=== PATIENT | male | born 1960 | race Caucasian/White ===

== ENCOUNTER 2020-12-05 06:24 | Outpatient (CLI) | payer OTHER ==
[~2020-12-05] VITALS: Ht 195.6 cm; Wt 124.9 kg
[2020-12-05] MEDS ORDERED: [UNRECOGNIZED DRUG - CODE] PO (14:14)
[2020-12-05] MEDS ORDERED: IBU PO (14:14)
[2020-12-05] MEDS ORDERED: ASCO500C17 PO (14:14)
[2020-12-05] MEDS ORDERED: FLUT9.9S NS (14:14)
[2020-12-05] MEDS ORDERED: FISH400C PO (14:14)
[2020-12-05] MEDS ORDERED: HYDR12.56 PO (14:14)
[2020-12-05] MEDS ORDERED: MULT-974 PO (14:14)
[2020-12-05] MEDS ORDERED: CETI10TA17 PO (14:14)
[2020-12-05] MEDS ORDERED: ATOR20TA66 PO (14:14)
[2020-12-05] MEDS ORDERED: TYL PO (14:14)
== END 2020-12-05 14:17 | disposition home or self-care (01) ==
LOC: PREOP 06:24
PROVIDERS: ATTEND Podiatrist Foot & Ankle Surgery
DX: Z01.818 Encounter for other preprocedural examination (principal)

== ENCOUNTER 2020-12-11 07:52 | Day surgery (SDC) | payer OTHER ==
[~2020-12-11] VITALS: Ht 195.6 cm; Wt 124.9 kg
[2020-12-11] VITALS (10 sets, daily range): BP systolic 128–185; BP diastolic 78–104
[~2020-12-11 07:52] MED LIST: ASCO500C17 PO; ATOR20TA66 PO; CETI10TA17 PO; FISH400C PO; FLUT9.9S NS; HYDR12.56 PO; IBU PO; MULT-974 PO; TYL PO; [UNRECOGNIZED DRUG - CODE] PO
[2020-12-11] MEDS ORDERED: ceFAZolin INJECTION 1,000 MG in WATER (STERILE) FOR INJECTION 10 ML IV ONE (08:00)
[2020-12-11] MEDS: LACTATED RINGERS 1,000 ML IV PRN ×2 (08:26→09:45)
[2020-12-11] MEDS ORDERED: BUPIVACAINE 0.25% 30 ML (SENSORCAINE) VIAL ONE (08:28)
[2020-12-11] MEDS ORDERED: LACTATED RINGERS 0 ML IV ONE (08:35)
[2020-12-11] MEDS ORDERED: ONDANSETRON 4 MG/2 ML (SDV) Z0FRAN ONE (08:35)
[2020-12-11] MEDS ORDERED: ROCURONIUM 10 MG/ML 5 ML SYRINGE IV ONE (08:35)
[2020-12-11] MEDS ORDERED: proPOfol 200 MG/20 ML (DIPRIVAN) VIAL IV ONE ×2 (08:35→10:17)
[2020-12-11] MEDS ORDERED: MIDAZOLAM 2 MG/2 ML (VERSED) VIAL ONE (08:35)
[2020-12-11] MEDS ORDERED: fentaNYL INJ 100 MCG/2 ML AMP ONE (08:35)
[2020-12-11] MEDS ORDERED: LIDOCAINE PF 2% 5 ML (XYLOCAINE) VIAL ONE ×3 (08:35→10:47)
--- NOTE | 2020-12-11 08:53 | Progress Note-Pre Operative ---
Pre-Operative Progress Note H&P Reviewed The H&P was reviewed, patient examined and no changes noted. Date Seen by Provider: December 11, 2020 Time Seen by Provider: 08:52 Date H&P Reviewed: December 11, 2020 Time H&P Reviewed: 08:52 Pre-Operative Diagnosis: Hypertrophic 2nd metatarsal, hammertoe 2nd, left GAVINO WALTERS DPLukas December 11, 2020 08:53
[2020-12-11] MEDS ORDERED: SEVOFLURANE (ULTANE) 15 ML INHAL SOLN ONE ×5 (10:22→10:48)
--- NOTE | 2020-12-11 11:08 | Progress Note-Post Operative ---
Post-Operative Progess Note Surgeon (s)/Roll Operator (s) Surgeon GAVINO WALTERS DPM Roll Operator: none Pre-Operative Diagnosis Hypertrophic 2nd metatarsal, hammertoe 2nd, left Post-Operative Diagnosis same Procedure & Operative Findings Date of Procedure 12/11/20 Procedure Performed/Findings 2nd metatarsal osteotomy, 2nd hammertoe reduction, left Anesthesia Type general Estimated Blood Loss Estimated blood loss (mL): minimal Specimens/Packing Specimens Removed none GAVINO WALTERS DPM December 11, 2020 11:08
[2020-12-11] MEDS ORDERED: CEPH500C PO (11:11)
[2020-12-11] MEDS ORDERED: ACHD5005 PO (11:11)
[2020-12-11] MEDS ORDERED: LACTATED RINGERS 1,000 ML IV SCH (11:15)
[2020-12-11] MEDS ORDERED: morphine INJ 10 MG/ML 1ML (SYR OR VIAL) IVP ONE (11:15)
[2020-12-11] MEDS ORDERED: fentaNYL INJ 100 MCG/2 ML AMP IVP ONE (11:15)
[2020-12-11] MEDS ORDERED: HYDROcodone/APAP 5 MG/325 MG (LORTAB) TAB PO PRN (11:15)
[2020-12-11] MEDS ORDERED: MEPERIDINE (DEMEROL) INJ 50 MG/ML IVP ONE (11:15)
[2020-12-11] MEDS ORDERED: ONDANSETRON 4 MG/2 ML (SDV) Z0FRAN IVP PRN (11:15)
--- NOTE | 2020-12-11 12:00 | Physical Therapy Progress Note ---
Therapy Progress Note Patient declined PT per RN. Patient reports he is "all set" for equipment at home. No PT indicated. MIRZA PAULSON PT December 11, 2020 12:00
--- NOTE | 2020-12-11 12:10 | Anesthesia-General Post-Op ---
General Patient Condition Mental Status/LOC: Same as Preop Cardiovascular: Satisfactory Nausea/Vomiting: Absent Respiratory: Satisfactory Pain: Controlled Complications: Absent Post Op Complications Complications None Follow Up Care/Instructions Patient Instructions None needed. Anesthesia/Patient Condition Patient Condition Patient is doing well, no complaints, stable vital signs, no apparent adverse anesthesia problems. No complications reported per nursing. PETTY LEON CRNA December 11, 2020 12:10
--- NOTE | 2020-12-11 12:14 | Diagnostic Imaging Report ---
INDICATION: Postoperative. TECHNIQUE: 2 views of the left foot CORRELATION STUDY: None FINDINGS: Single external fixation pin has been placed through the phalanges of the 2nd digit. Slight fragmentation at the articular base of the proximal phalanx. There is a fusion across the proximal phalangeal joint of the 3rd digit. There is a single screw over the 2nd metatarsal head. There is a transversely oriented fracture at the proximal 2nd metatarsal shaft. There is some reparative callus formation. Alignment appears to be anatomic. Some generalized soft tissue edema. IMPRESSION: 1. External fixation pin of the phalanges of the 2nd digit. 2. Single screw of the 2nd metatarsal head. 3. Partially but incompletely healed fracture at the proximal 2nd metatarsal shaft. Dictated by: Dictated on workstation # [id number]
--- NOTE | 2020-12-11 16:10 | OPERATIVE REPORT ---
DATE OF SERVICE: 12/11/2020 SURGEON: Yulia Amin DPM. PREOPERATIVE DIAGNOSES: 1. Hypertrophic second metatarsal, left. 2. Hammer digit syndrome, left second digit. 3. Subluxed left second metatarsophalangeal joint. POSTOPERATIVE DIAGNOSES: 1. Hypertrophic second metatarsal, left. 2. Hammer digit syndrome, left second digit. 3. Subluxed left second metatarsophalangeal joint. 4. Degenerative joint disease, left second metatarsophalangeal joint. PROCEDURES: 1. Second metatarsal osteotomy with screw fixation. 2. Reduction of hammertoe with flexor tendon transfer. WOUND CLASS: Clean. ANESTHESIA: General. HEMOSTASIS: Pneumatic thigh tourniquet at 300 mmHg. INDICATIONS: This 60-year-old male presents with a chronic problem to his left second toe and metatarsal. He has also had a recent fracture to the proximal diaphysis left second metatarsal to what I believe is due to lack of mobility of the second metatarsophalangeal joint. We discussed risks and complications associated with the procedure and he is willing to proceed. DESCRIPTION OF PROCEDURE: The patient was brought back to the operating table, placed in secure supine position. Appropriate timeout was performed. A general anesthetic was then induced. Pneumatic thigh tourniquet was placed on the left lower extremity over several layers of padding. The left second ray was anesthetized utilizing 10 mL of 1:1 mixture of 1% Xylocaine, 0.5% Marcaine utilizing aseptic technique. The left foot was then prepped and draped in normal sterile manner. The left foot was then elevated, allowed to exsanguinate after which the tourniquet was inflated to 300 mmHg. Attention was then directed to the dorsal aspect of the left second metatarsophalangeal joint where a previous incision was identified. Incision was made through the surgical neck of the second metatarsal out to the distal interphalangeal joint, which was approximately 4 cm. The incision was deepened in the same plane with great care to identify and retract all vital neurovascular structures. The incision was made through the scar tissue down to the extensor digitorum longus tendon. Z slide lengthening was performed overlying the proximal phalanx area. The extensor tendon was reflected proximally and distally. Next, the extensor mcgill was released overlying the metatarsophalangeal joint. The capsular tissue was also resected from medial to lateral. This demonstrated the base of the proximal phalanx of the second toe riding on the dorsal aspect of the second metatarsal head area. Once the digit was digitally forced to be in alignment, there is a significant articular cartilage damage to the dorsal aspect of the second metatarsal head area. Next, utilizing a McGlamry elevator, the plantar adhesions were released to the second metatarsal head area. A Eriberto type osteotomy was then performed. The sagittal saw was held in the same plane as what would be the weightbearing for the patient's foot. The sagittal saw was used to create the osteotomy just inferior to the beginning of the articular cartilage area; however, it was devoid of any articular cartilage at this time. The sagittal saw was used to cut the Eriberto type osteotomy allowing the capital fragment to translocate proximally and it was temporarily fixated in its corrected position with a 0.035 K-wire. A protective ball was placed over the end of the wire. Attention was then directed to the subluxed left second digit where the collateral ligaments were released holding in its abnormal position dorsally. Next, a power sagittal saw was used to cut the arthrodesis site of the proximal interphalangeal joint area. This allowed for identification of the flexor digitorum longus tendon, which was cut and then passed proximally and laterally to the base of the proximal phalanx area. Next, utilizing a drill, a submersible pilot hole was created from dorsal to plantar at the base of the proximal diaphysis to the base of the proximal phalanx. Next, the tendon was then passed from plantar to dorsal and was split longitudinally and sutured in place utilizing 2-0 Ethibond. The base of the proximal phalanx was also inspected and was devoid of the majority portion of its articular cartilage. However, it was rather smooth and had minimal crepitation with attempted range of motion at this time at the metatarsophalangeal joint. Next, the Eriberto osteotomy was now secured in its position utilizing a 2.0 snap-off screw of 14 mm of length driven from dorsal to plantar, securing the osteotomy in a closed position. Excellent bony apposition was appreciated at this time. The remaining head of the second metatarsal was further contoured and smoothed with a rongeur, power bur and hand rasp. This allowed for more anatomical alignment of the left second metatarsophalangeal joint and significant crepitation was noted with passive range of motion. Next, fenestration was performed to the area of the second metatarsal that was devoid of articular cartilage. The same fenestration was performed to the cut at a proximal interphalangeal joint of the left second toe with a 1.5 wire passing drill. Next, a smooth 0.062 K-wire was driven down the end of the toe, securing the proximal interphalangeal joint arthrodesis site in place, also securing the flexor tendon transfer in place, holding it in its more anatomical position. Next, the excess K-wire was cut and protective ball placed over the end of the wire. The wound was flushed with copious amounts of normal saline and closure was then performed in layers. Deep closure was performed with 3-0 Vicryl reapproximating the collateral, lateral and medial ligaments to the metatarsophalangeal joint. Capsule was also repaired with 3-0 Vicryl. The extensor tendon was also repaired with 3-0 Vicryl, and subcutaneous tissue was reapproximated with 4-0 Vicryl, skin closed with 4-0 Prolene in a horizontal mattress type stitch. The tourniquet was released noting appropriate cap refill time to all digits of the left foot including the second toe. Postoperative injection consisted of 12 mL of 0.5% Marcaine injected a local infusion to the surgical site. Postoperative dressing consisted of Betadine soaked Adaptic, sterile 4 x 4, sterile Kerlix, all secured with a Coban wrap. The patient tolerated the anesthesia and procedure well and was transported from the operating room to the recovery area with vital signs stable and vascular status intact to all digits of the left foot. He is to follow up in my office in 10 days' period of time or sooner if necessary. Job ID: [id number] DocumentID: [id number] Dictated Date: 12/11/2020 11:22:23 Mentally Retarded Teacher Date: 12/11/2020 16:10:03 Dictated By: DESMOND ROY
== END 2020-12-11 13:10 | disposition home or self-care (01) ==
LOC: SDC 07:52
PROVIDERS: ATTEND Podiatrist Foot & Ankle Surgery
DX: M89.372 Hypertrophy of bone, left ankle and foot (principal); M20.40 Other hammer toe(s) (acquired), unspecified foot; M20.42 Other hammer toe(s) (acquired), left foot; S93.145A Subluxation of metatarsophalangeal joint of left lesser toe(s), initial encounter; M19.072 Primary osteoarthritis, left ankle and foot; I10 Essential (primary) hypertension; E78.5 Hyperlipidemia, unspecified; J45.909 Unspecified asthma, uncomplicated; E66.9 Obesity, unspecified; Z68.31 Body mass index [BMI] 31.0-31.9, adult; Z79.899 Other long term (current) drug therapy
CPT/HCPCS: 73620; 87081

== ENCOUNTER 2022-11-22 05:34 | Outpatient (CLI) | payer OTHER ==
[~2022-11-22] VITALS: Ht 195.6 cm; Wt 125.0 kg
[~2022-11-22 05:34] MED LIST changes: +ACHD5005 PO; +CEPH500C PO
[2022-11-22] MEDS ORDERED: UBID200C16 PO (09:25)
[2022-11-22] MEDS ORDERED: IBUP-2473 PO (09:25)
[2022-11-22] MEDS ORDERED: ACET-575 PO (09:25)
[2022-11-22] MEDS ORDERED: ACET-93 PO (09:25)
[2022-11-22] MEDS ORDERED: HYDR25TA4 PO (09:25)
[2022-11-22] MEDS ORDERED: CHOL100048 PO (09:25)
[2022-11-22] MEDS ORDERED: CA C1TAB78 PO (09:25)
== END 2022-11-22 09:56 | disposition home or self-care (01) ==
LOC: PREOP 05:34
PROVIDERS: ATTEND Podiatrist Foot & Ankle Surgery
DX: Z01.818 Encounter for other preprocedural examination (principal)

== ENCOUNTER 2022-11-29 11:23 | Day surgery (SDC) | payer OTHER ==
[2022-11-29] VITALS (10 sets, daily range): BP systolic 121–144; BP diastolic 65–93
[~2022-11-29 11:23] MED LIST changes: +ACET-575 PO; +ACET-93 PO; +CA C1TAB78 PO; +CHOL100048 PO; +HYDR25TA4 PO; +IBUP-2473 PO; +UBID200C16 PO
[2022-11-29] MEDS ORDERED: LIDOCAINE 1% INJ 20 ML VIAL ONE (11:59)
[2022-11-29] MEDS ORDERED: BUPIVACAINE 0.5% 30 ML (SENSORCAINE) VIAL ONE (12:00)
[2022-11-29] MEDS ORDERED: LACTATED RINGERS 1,000 ML IV PRN (12:15)
[2022-11-29] MEDS ORDERED: ceFAZolin INJECTION 1,000 MG in NS (IVPB) 50 ML IV ONE (12:15)
[2022-11-29] MEDS ORDERED: fentaNYL INJ 100 MCG/2 ML AMP ONE (12:47)
[2022-11-29] MEDS ORDERED: ONDANSETRON 4 MG/2 ML (SDV) Z0FRAN ONE (12:47)
[2022-11-29] MEDS ORDERED: proPOfol 200 MG/20 ML (DIPRIVAN) VIAL IV ONE (12:47)
[2022-11-29] MEDS ORDERED: MIDAZOLAM 2 MG/2 ML (VERSED) VIAL ONE (12:47)
[2022-11-29] MEDS ORDERED: LIDOCAINE PF 2% 5 ML (XYLOCAINE) VIAL ONE (12:47)
--- NOTE | 2022-11-29 12:54 | Progress Note-Pre Operative ---
Pre-Operative Progress Note Date of Available H&P: November 29, 2022 Date H&P Reviewed: November 29, 2022 Time H&P Reviewed: 12:42 Pre-Operative Diagnosis: DJD left 2nd MTPJ GAVINO WALTERS DPM November 29, 2022 12:54
[2022-11-29] MEDS: LIDOCAINE 1% INJ 20 ML VIAL INJ ONE ×2 (13:00→13:21)
[2022-11-29] MEDS ORDERED: BUPIVACAINE 0.5% 30 ML (SENSORCAINE) VIAL INJ ONE (13:22)
[2022-11-29] MEDS ORDERED: SEVOFLURANE (ULTANE) 15 ML INHAL SOLN ONE (14:24)
--- NOTE | 2022-11-29 14:33 | Anesthesia-General Post-Op ---
General Patient Condition Mental Status/LOC: Same as Preop Cardiovascular: Satisfactory Nausea/Vomiting: Absent Respiratory: Satisfactory Pain: Controlled Complications: Absent Post Op Complications Complications None Follow Up Care/Instructions Patient Instructions None needed. Anesthesia/Patient Condition Patient Condition Patient is doing well, no complaints, stable vital signs, no apparent adverse anesthesia problems. No complications reported per nursing. ROSANNA MAE CRNA November 29, 2022 14:33
--- NOTE | 2022-11-29 14:33 | Progress Note-Post Operative ---
Post-Operative Progess Note Surgeon (s)/Termite Technician (s) Surgeon GAVINO WALTERS DPM Termite Technician: none Pre-Operative Diagnosis DJD left 2nd MTPJ Post-Operative Diagnosis Same Procedure & Operative Findings Date of Procedure 11/29/22 Procedure Performed/Findings Left 2nd metatarsophalangeal joint arthroplasty with gamal joint implant Anesthesia Type General Estimated Blood Loss Estimated blood loss (mL): Minimal Specimens/Packing Specimens Removed 2nd metatarsal head bone, left GAVINO WALTERS DPM November 29, 2022 14:33
[2022-11-29] MEDS ORDERED: CEPH500C PO (14:35)
[2022-11-29] MEDS ORDERED: ACHD5005 PO (14:35)
[2022-11-29] MEDS ORDERED: LACTATED RINGERS 1,000 ML IV SCH (14:45)
[2022-11-29] MEDS ORDERED: HYDROcodone/APAP 5 MG/325 MG (LORTAB) TAB PO PRN (14:45)
[2022-11-29] MEDS ORDERED: ONDANSETRON 4 MG/2 ML (SDV) Z0FRAN IVP PRN (14:45)
[2022-11-29] MEDS ORDERED: morphine INJ 10 MG/ML 1ML (SYR OR VIAL) IVP ONE (14:45)
--- NOTE | 2022-11-29 16:45 | Diagnostic Imaging Report ---
INDICATION: Postop left foot surgery. TECHNIQUE: 2 views of the left foot. CORRELATION STUDY: 12/11/2020. FINDINGS: Surgical changes with prosthesis at the 2nd metatarsal head. Old pin tracts through the 2nd phalanges. There is arthrodesis across the proximal interphalangeal joint. No arthrodesis across the 2nd distal interphalangeal joint. The 3rd toe also demonstrates fusion across the proximal interphalangeal joint. Previously noted fracture at the base of the 2nd metatarsal shaft has healed. Soft tissue swelling overlying dressing material. IMPRESSION: Postoperative changes of a 2nd metatarsal head prosthesis. Dictated by: Dictated on workstation # [id number]
--- NOTE | 2022-11-29 20:37 | OPERATIVE REPORT ---
DATE OF SERVICE: 11/29/2022 SURGEON: Yulia Walters DPM. PREOPERATIVE DIAGNOSIS: Degenerative joint disease to the left second metatarsophalangeal joint and metatarsalgia. POSTOPERATIVE DIAGNOSIS: Degenerative joint disease to the left second metatarsophalangeal joint and metatarsalgia. PROCEDURES PERFORMED: Arthroplasty to the left second metatarsophalangeal joint with a [employer] joint implant. WOUND CLASS: Clean. ANESTHESIA: General. HEMOSTASIS: Pneumatic thigh tourniquet at 300 mmHg. INDICATIONS: This 62-year-old male presents complaining of a painful left second toe. The patient had previously had a second metatarsal osteotomy with a reduction of hammertoe secondary to a subluxed left second metatarsophalangeal joint. The procedure included a flexor tendon transfer. After the procedure, the joint was very stiff and immobile allowing for only a fraction of motion that he desired. This caused significant discomfort with walking. It was then decided that we should do a revisional surgery to the second metatarsal head on the left with a possible implant. PROCEDURE IN DETAIL: The patient was brought back to the operating table and placed in secure supine position. General anesthetic was then induced. Appropriate timeout was performed. A pneumatic thigh tourniquet was applied to the left lower extremity over several layers of padding. The left foot was then prepped and draped in normal sterile manner. A preprocedure anesthesia was administered locally utilizing 5 mL of 1:1 mixture of 1% Xylocaine and 0.5% Marcaine injected in a block to the second ray, left foot. Attention was then directed to the dorsal aspect of the left second metatarsophalangeal joint where a 5 cm longitudinal linear incision was created. The incision was deepened in the same plane with great care to identify and retract all vital neurovascular structures. Only necessary blood vessels were cauterized as encountered. A Z slide lengthening was performed overlying the extensor tendon to the second digit. The extensor tendon was reflected proximally and the extensor mcgill released to the second metatarsophalangeal joint. There is quite a bit of scar tissue noted to the dorsal aspect of the second metatarsophalangeal joint. The base of the proximal phalanx was once again dorsally subluxed. Utilizing C-arm, the previous 2.0 snap-off screw was identified and withdrawn from the foot. There was significant amount of degenerative changes to the head of the second metatarsal. It was then decided that the gamal-implant would be appropriate. Utilizing a standard technique for the [facility] lesser metatarsal head gamal-implant, a good portion of the second metatarsal head was resected of poor articular cartilage. The first cut was perpendicular to the weightbearing surface for the patient. A sizer was then applied and we applied a size 3 implant. A 0.045 K-wire was then driven down the toe through the guide after which a drill was then introduced from distal to proximal and a broach applied as well, after which a sizer was introduced to the second metatarsal head. The wound was flushed with copious amounts of normal saline and the size 3 [employer] gamal-implant was then applied to the second metatarsal head. This allowed for appropriate range of motion to the left second metatarsophalangeal joint. Slight modification to the inferior aspect of the second metatarsal head was performed. A sagittal saw was utilized to cut at a 45-degree angle in hopes that when the patient rolled on the ball of foot, this would not be comfortable edge for the patient. The wound was flushed once again and closure was then performed in layers. Deep closure was performed with 3-0 Vicryl, superficial with 4-0 Vicryl, skin closed with 4-0 Prolene in a horizontal mattress type stitch. Postoperative injection consisted of 10 mL of 0.5% Marcaine injected in a local infusion to the surgical site. Postoperative dressing consisted of Betadine-soaked Adaptic, sterile 4 x 4's, sterile Kerlix, all secured with a Coban wrap. The patient tolerated the anesthesia and procedure well and was transported from the operating room to the recovery room with vital signs stable and vascular status intact to all digits of the left foot. Job ID: [id number] DocumentID: [id number] Dictated Date: 11/29/2022 14:44:24 Private Investigator Surveillance Date: 11/29/2022 20:35:00 Dictated By: YULIA WALTERS DPM
== END 2022-11-29 16:20 ==
LOC: SDC 11:23
PROVIDERS: ATTEND Podiatrist Foot & Ankle Surgery
DX: M19.042 Primary osteoarthritis, left hand (principal); E66.9 Obesity, unspecified; M77.42 Metatarsalgia, left foot; I10 Essential (primary) hypertension; E78.5 Hyperlipidemia, unspecified; J30.2 Other seasonal allergic rhinitis; Z68.33 Body mass index [BMI] 33.0-33.9, adult; Z87.891 Personal history of nicotine dependence; Z79.899 Other long term (current) drug therapy
CPT/HCPCS: 73620; 87081